=== PATIENT | female | born 1985 | race African-American/Black ===

== ENCOUNTER → 2016-10-25 | Outpatient (CLI) | payer MEDICAID ==
--- NOTE | 2016-10-25 15:59 | US ---
HISTORY: Routine screening Study: OB ultrasound greater than 14 weeks Comparison: None Technique: Multiple grayscale and color flow Doppler images of the pelvis were obtained with focused evaluation of the fetus. Findings: A viable single intrauterine is identified with heart tones of 133 beats per minute. A cephalic presentation is observed with a anterior and fundal placenta. Normal amniotic fluid vo lume is observed . Evaluation of the anatomy including the stomach, kidneys, urinary bladder, and four-chamber heart are unremarkable. The extremities and spine are normal in their sonographic appearance. A three-vessel cord is observed. No intracranial abnormality can be identified. Value Estimated Gestational Age BPD 7.7 centimeters 30 weeks 5 days HC 28 centimeters 30 weeks 5 days AC 26.6 centimeters 30 weeks 5 days FL 5.8 centimeters 30 weeks 4 days IMPRESSION: A viable single intrauterine with an average ultrasound age of 30 weeks 5 days correspond to an estimated date of delivery of December 29, 2016. No anatomical abnormalities can be identified. Reported By:
== END ==
LOC: RAD 13:31
PROVIDERS: ATTEND Obstetrics & Gynecology Obstetrics
DX: Z34.92 Encounter for supervision of normal pregnancy, unspecified, second trimester (principal)

== ENCOUNTER 2016-11-30 00:17 | Inpatient (IN) | payer MEDICAID ==
[2016-11-30 00:33] VITALS: BMI 60.7
[2016-11-30 00:43] LABS: AMNISURE ROM TEST THERE IS A RUPTURE (NO RUPTURE)
[2016-11-30] MEDS ORDERED: PITOCIN IVP ONE (01:23)
[2016-11-30] MEDS ORDERED: NUBAIN INJ 200 MG VIAL MULTIDOSE IVP PRN (01:23)
[2016-11-30] MEDS ORDERED: REGLAN INJ 10 MG VIAL IVP PRN (01:23)
[2016-11-30] MEDS ORDERED: DILAUDID INJ IVP PRN (01:23)
[2016-11-30] MEDS ORDERED: PHENERGAN INJ 25 MG IV PRN ×2 (01:23→03:33)
[2016-11-30] MEDS ORDERED: PITOCIN 10 UNITS in D5 LR 1000 ML 1,000 ML IV PRN (01:23)
[2016-11-30 01:32] LABS: BASOPHILS % (AUTO) 0.4 % (0.2-1.0); EOSINOPHILS % (AUTO) 0.7 % (0.9-2.9); HEMOGLOBIN 11.5 g/dL (12.0-16.0); LYMPHOCYTES # (AUTO) 2.2 X10^3/uL (1.3-2.9); LYMPHOCYTES % (AUTO) 29.9 % (21.0-51.0); MEAN CORPUSCULAR HEMOGLOBIN 25.7 pg (27.0-34.0); MEAN CORPUSCULAR HGB CONC 32.7 g/dL (33.0-35.0); MEAN CORPUSCULAR VOLUME 78.4 fL (80.0-100.0); MEAN PLATELET VOLUME 10.1 fL (7.4-11.0); MONOCYTES # (AUTO) 0.7 x10^3/uL (0.3-0.8); MONOCYTES % (AUTO) 9.9 % (0.0-13.0); NEUTROPHILS # (AUTO) 4.3 x10^3/uL (2.2-4.8); NEUTROPHILS % (AUTO) 59.1 % (42.0-75.0); PLATELET COUNT 177 X10^3/uL (150.0-450.0); RED BLOOD COUNT 4.46 X10^6/uL (3.5-5.4); RED CELL DISTRIBUTION WIDTH 14.4 % (11.6-16.5); WHITE BLOOD COUNT 7.3 X10^3/uL (3.6-10.0)
[2016-11-30] MEDS ORDERED: D5 1/2 NS 1000ML W PITOCIN 20 U/L 1,000 ML IV ONE (01:34)
[2016-11-30] MEDS ORDERED: D5 1/2 NS 1000 ML 1,000 ML IV ONE (01:34)
[2016-11-30] MEDS ORDERED: AMPICILLIN VIAL 2 GM ONE (01:34)
[2016-11-30] MEDS ORDERED: D5LR 1000ML W PITOCIN 10 U/L 1,000 ML IV ONE (01:34)
[2016-11-30] MEDS ORDERED: NS 100 ML IV 100 ML IV ONE (01:34)
[2016-11-30 01:36] LABS: BLOOD UREA NITROGEN 10 mg/dL (7-18); CALCIUM 8.5 mg/dL (8.5-10.1); CARBON DIOXIDE 26.7 mmol/L (21-32); CHLORIDE 106 mmol/L (98-107); CREATININE 0.71 mg/dL (0.55-1.02); GLUCOSE 100 mg/dL (65-99); SODIUM 138 mmol/L (136-145); eGFR BLACK RACES > 60 (>60); eGFR NON BLACK RACES > 60 (>60)
[2016-11-30] MEDS ORDERED: D5 1/2 NS 1000 ML 1,000 ML IV SCH (02:00)
[2016-11-30] MEDS ORDERED: AMPICILLIN VIAL 2 GM 2 GM in NS 100 ML IV + SPIKE MINIBAG* 100 ML IV SCH (02:00)
[2016-11-30 02:08] LABS: PLATELET MORPHOLOGY COMMENT NORMAL (NORMAL)
[2016-11-30] MEDS ORDERED: NUBAIN INJ 10 ONE (02:35)
[2016-11-30] MEDS ORDERED: MOTRIN TAB 800 MG PO PRN (03:33)
[2016-11-30] MEDS ORDERED: D5 1/2 NS 1000 ML 1,000 ML with PITOCIN 20 UNITS IV SCH ×2 (04:00)
[2016-11-30] MEDS ORDERED: MILK OF MAGNESIA PO PRN (04:34)
[2016-11-30] MEDS ORDERED: DERMOPLAST SPRAY TOP PRN (04:34)
[2016-11-30] MEDS ORDERED: AMBIEN PO PRN (04:34)
[2016-11-30] MEDS: MOTRIN TAB 800 MG PO PRN ×2 (05:18→20:20)
[2016-11-30] MEDS ORDERED: AMPICILLIN VIAL 1 GM 1 GM in NS 50 ML IV + SPIKE MINIBAG* 50 ML IV SCH (05:29)
[2016-11-30 05:32] LABS: HEMATOCRIT 33.1 % (36.0-47.0)
[2016-11-30] MEDS: ZANTAC PO SCH ×2 (09:00→20:20)
[2016-11-30] MEDS: PRENATAL PLUS PO SCH (09:00)
[2016-12-01] MEDS: ZANTAC PO SCH (10:01)
[2016-12-01] MEDS: PRENATAL PLUS PO SCH (10:01)
[2016-12-01 12:07] VITALS: BP 166/57
== END 2016-12-01 14:25 | disposition home or self-care (01) | DRG 775 ==
LOC: ER 00:17 → LD 01:15 → MED/SURG 04:03
PROVIDERS: ADMIT Obstetrics & Gynecology Obstetrics; ATTEND Obstetrics & Gynecology Obstetrics
PROC: 10E0XZZ Delivery of Products of Conception, External Approach (ICD-10-PCS; principal; 2016-11-30)
DX: O60.14X0 Preterm labor third trimester with preterm delivery third trimester, not applicable or unspecified (principal); Z37.0 Single live birth; O09.33 Supervision of pregnancy with insufficient antenatal care, third trimester; Z3A.35 35 weeks gestation of pregnancy; Z23 Encounter for immunization
CPT/HCPCS: 36415; 59409; 80048; 84112; 85014; 85018; 85025; 86592; 86850; 86900; 86901; 96365; 99284; A4216; A4222; S0197; J0290; J2300; J2590; J7042